=== PATIENT | female | born 1950 | race Caucasian/White ===

== ENCOUNTER 2017-09-01 15:47 | Emergency (ER) | payer MEDICAID | END 2017-09-01 18:47 | disposition home or self-care (01) | LOC: FTE 15:47 | DX: H92.01 Otalgia, right ear (principal); H92.02 Otalgia, left ear; I10 Essential (primary) hypertension; E11.9 Type 2 diabetes mellitus without complications; Z79.4 Long term (current) use of insulin | CPT/HCPCS: 99283; Z7502 ==